=== PATIENT | male | born 2000 | race Caucasian/White ===

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

== ENCOUNTER 2021-09-17 10:43 | Emergency (ER) | payer OTHER ==
[~2021-09-17] VITALS: Ht 170.2 cm; Wt 68.2 kg
[2021-09-17 14:17] VITALS: BP 142/83
== END 2021-09-17 14:19 | disposition home or self-care (01) ==
LOC: EMS 10:46
DX: S63.502A Unspecified sprain of left wrist, initial encounter (principal); Z86.19 Personal history of other infectious and parasitic diseases; F12.90 Cannabis use, unspecified, uncomplicated; X58.XXXA Exposure to other specified factors, initial encounter; Y93.89 Activity, other specified; Y92.89 Other specified places as the place of occurrence of the external cause; Y99.8 Other external cause status
CPT/HCPCS: 99283